=== PATIENT | male | born 1995 ===

== ENCOUNTER 2017-12-25 11:54 | Emergency (ER) | payer MEDICAID, OTHER ==
[2017-12-25 12:00] VITALS: BMI 25.0
[2017-12-25 12:04] VITALS: RESP 18; TEMP 97.7
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
[2017-12-25] MEDS ORDERED: Amoxicillin-Clav 875-125 mg Tab PO STA (13:56)
[2017-12-25 14:00] VITALS: BP 163/98; PULSE 87; O2SAT 100
== END 2017-12-25 14:42 | disposition home or self-care (01) ==
LOC: ED 11:54
DX: R04.0 Epistaxis (principal); S02.2XXA Fracture of nasal bones, initial encounter for closed fracture; W50.0XXA Accidental hit or strike by another person, initial encounter; Y93.67 Activity, basketball; Y92.89 Other specified places as the place of occurrence of the external cause